=== PATIENT | male | born 1995 ===

== ENCOUNTER 2016-03-22 11:13 | Emergency (ER) | payer OTHER ==
[2016-03-22] MEDS ORDERED: Lidocaine 2% PF * 5 ML VIAL ONE (12:25)
--- NOTE | 2016-03-22 12:27 | RAD ---
INDICATION: Crush injury left middle finger. TECHNIQUE: 3 views of the left middle finger were obtained. FINDINGS: There is a soft tissue defect and soft tissue swelling adjacent to the distal phalanx of the middle finger. No fracture is seen. The bones are normal alignment. Joint spaces appear maintained. IMPRESSION: SOFT TISSUE INJURY, NO FRACTURE IS SEEN.
--- NOTE | 2016-03-22 14:13 | UC ---
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 LAST TETANUS LIKELY 3 YEARS AGO. - History Of Current Complaint Chief Complaint: UCLaceration Stated Complaint: FINGER LAC Time Seen by Provider: 03/22/16 11:20 Hx Obtained From: Patient Laceration Location: Finger - LEFT 3RD Mechanism Of Injury: Blunt Trauma Onset/Duration: Lasting Hours Severity: Mild Pain Intensity: 2 Pain Scale Used: 0-10 Numeric Aggravating Factors: Position Related History: Occupational Injury, Dominant Hand Right - Allergies/Home Medications Allergies/Adverse Reactions: Allergies Allergy/AdvReac Type Severity Reaction Status Date / Time Sulfa Antibiotics Allergy Severe Swelling Verified 03/22/16 11:28 Of Face,Lips,& Throat PMH/Surg Hx/FS Hx/Imm Hx Previously Healthy: Yes - Surgical History Surgical History: Yes Surgery Procedure, Year, and Place: tonsilectomy - Family History Known Family History: Negative: Blood Disorder - Social History Occupation: Employed Full-time Lives: With Family Alcohol Use: Weekly Substance Use Type: None Smoking Status (MU): Heavy Every Day Tobacco Smoker Type: Cigarettes Amount Used/How Often: 1/2 ppd Length of Time of Smoking/Using Tobacco: started at age 19 Have You Smoked in the Last Year: Yes Cessation Counseling: Counseled 3+Min - 10 Min - Immunization History Most Recent Tetanus Shot: unknown Review of Systems Constitutional: Negative Skin: Negative Eyes: Negative ENT: Negative Respiratory: Negative Cardiovascular: Negative Gastrointestinal: Negative Genitourinary: Negative Motor: Negative Neurovascular: Negative Musculoskeletal: Negative Neurological: Negative Psychological: Negative All Other Systems Reviewed And Are Negative: Yes Physical Exam Triage Information Reviewed: Yes Appearance: Well-Appearing, No Pain Distress, Well-Nourished Vital Signs: Initial Vital Signs Temp 98 F 03/22/16 11:23 Pulse 93 03/22/16 11:23 Resp 16 03/22/16 11:23 BP 171/96 03/22/16 11:23 Pulse Ox 98 03/22/16 11:23 Vital Signs Reviewed: Yes Eye Exam: Normal Eyes: Positive: Conjunctiva Clear ENT Exam: Normal ENT: Positive: Normal ENT inspection, Hearing grossly normal, TMs normal Dental Exam: Normal Neck exam: Normal Respiratory Exam: Normal Respiratory: Positive: Chest non-tender, Lungs clear, Normal breath sounds, No respiratory distress Cardiovascular Exam: Normal Cardiovascular: Positive: RRR, No Murmur, Pulses Normal Abdominal Exam: Normal Musculoskeletal Exam: Normal Musculoskeletal: Positive: Strength Intact, ROM Intact, No Edema Neurological Exam: Normal Psychological Exam: Normal Skin: Positive: Other - MACERATED LACERATION TO DISTAL LEFT THIRD FINGER Laceration Repair - Laceration Repair 1 Description: Irregular Laceration Size After Repair: Length (cm) - 3, Width (mm) - 5, Depth (mm) - 10 Type Injection: Digital Anesthesia Used: 2.0% Lido Cleansing Completed Via Routine Prep: Yes Irrigation With Pressure Irrigation Device: Yes Closure Material: Sutures - 5 X 4-0 PROLENE Suture Of: Skin, SQ Suture Type: Prolene - 5 X 4-0 PROLENE Diagnostics - Laboratory Diagnostic Studies Completed/Ordered: FINGER XRAY: NO FRACTURE Laceration Course/Dx - Differential Dx - Laceration/Wound Differental Diagnoses: Fracture, Laceration Provider Diagnoses: CLOSED MACERATED LACERATION OF DISTAL LEFT THIRD FINGER, WITH REPAIR. CRUSH INJURY DISTAL LEFT THIRD FINGER Discharge - Discharge Plan Condition: Stable Disposition: HOME Prescriptions: Cephalexin CAP* [Keflex CAP*] 500 mg PO TID #30 cap Patient Education Materials: Finger Laceration (ED) Forms: *Work Release Referrals: No Primary Care Phys,NOPCP [Medical Doctor] - Additional Instructions: PLEASE HAVE SUTURES REMOVED AFTER TEN DAYS
== END 2016-03-22 13:47 | disposition home or self-care (01) ==
LOC: UCEAST 11:13
DX: S61.213A Laceration without foreign body of left middle finger without damage to nail, initial encounter (principal); W25.XXXA Contact with sharp glass, initial encounter; Y93.89 Activity, other specified; Y92.9 Unspecified place or not applicable; Y99.0 Civilian activity done for income or pay; F17.210 Nicotine dependence, cigarettes, uncomplicated; Z71.6 Tobacco abuse counseling
CPT/HCPCS: 12001; 12002; 73140; 99202; G0463

== ENCOUNTER 2016-04-02 10:53 | Emergency (ER) | payer OTHER ==
--- NOTE | 2016-04-02 11:29 | UC ---
HPI Wound/Suture Re-check - HPI Summary HPI Summary: suture removal from left middle finger eight sutures placed 10 days ago denies pain in finger denies fever - History Of Current Complaint Chief Complaint: UCSkin Stated Complaint: STITCH REMOVAL Time Seen by Provider: 04/02/16 11:21 Hx Obtained From: Patient - Allergies/Home Medications Allergies/Adverse Reactions: Allergies Allergy/AdvReac Type Severity Reaction Status Date / Time Sulfa Antibiotics Allergy Severe Swelling Verified 03/22/16 11:28 Of Face,Lips,& Throat Home Medications: Home Medications NK [No Home Medications Reported] 04/02/16 [History Confirmed 04/02/16] PMH/Surg Hx/FS Hx/Imm Hx Previously Healthy: Yes - Surgical History Surgical History: Yes Surgery Procedure, Year, and Place: tonsilectomy - Family History Known Family History: Negative: Hypertension, Diabetes, Blood Disorder - Social History Occupation: Employed Full-time Alcohol Use: Weekly Substance Use Type: None Smoking Status (MU): Heavy Every Day Tobacco Smoker Type: Cigarettes Amount Used/How Often: 1/2 ppd Length of Time of Smoking/Using Tobacco: started at age 19 Have You Smoked in the Last Year: Yes - Immunization History Most Recent Tetanus Shot: unknown Review of Systems Constitutional: Negative Skin: Other - sutures Eyes: Negative ENT: Negative Respiratory: Negative Cardiovascular: Negative Gastrointestinal: Negative Genitourinary: Negative Motor: Negative Neurovascular: Negative Musculoskeletal: Negative Neurological: Negative Psychological: Negative All Other Systems Reviewed And Are Negative: Yes Physical Exam Triage Information Reviewed: Yes Appearance: No Pain Distress, Well-Nourished Vital Signs: Initial Vital Signs Temp 97.4 F 04/02/16 10:58 Pulse 94 04/02/16 10:58 Resp 16 04/02/16 10:58 BP 160/84 04/02/16 10:58 Pulse Ox 99 04/02/16 10:58 Vital Signs Reviewed: Yes Respiratory: Positive: Lungs clear, Normal breath sounds, No respiratory distress Cardiovascular: Positive: RRR, No Murmur Neurological: Positive: Alert Psychological Exam: Normal Skin: Positive: Other - left middle finger with 8 sutures, laceration well approximated no erythema ,edema or exudate Procedures - Procedure Summary Procedure Summary: 8 sutures removed-pt tolerated well Course/Dx - Differential Dx - Laceration/Wound Differential Diagnoses: Suture Removal Provider Diagnoses: suture removal Discharge - Discharge Plan Condition: Stable Disposition: HOME Patient Education Materials: Stitches Removal (ED), Hypertension (ED) Referrals: No Primary Care Phys,NOPCP [Primary Care Provider] - [facility] [place] [facility] [Outside] Additional Instructions: your blood pressure is elevated and needs evaluation please call the physician referral service to find a primary care provider Please review your discharge instructions. If your symptoms do not improve please call your primary care provider or return to urgent care.
== END 2016-04-02 11:46 | disposition home or self-care (01) ==
LOC: UCEAST 10:53
DX: Z48.02 Encounter for removal of sutures (principal); Z88.2 Allergy status to sulfonamides; F17.210 Nicotine dependence, cigarettes, uncomplicated
CPT/HCPCS: 99211; G0463